=== PATIENT | male | born 1980 | race Caucasian/White ===

== ENCOUNTER 2018-08-16 00:42 | Inpatient (IN) | payer SELFPAY ==
[2018-08-16 01:28] LABS: #Lymphocytes 1.8 thou/uL (1.20-3.40); #Monocytes 0.5 thou/uL (0.11-0.59); #Neutrophils 8.1 thou/uL (1.40-6.50); %Basophils 0.4 % (0.0-1.0); %Eosinophils 0.4 % (0.0-10.0); %Lymphocytes 17.3 % (21.0-51.0); %Monocytes 5.1 % (0.0-10.0); %Neutrophils 76.8 % (42.0-75.0); Hemoglobin 15.3 g/dL (14.0-18.0); Mean Corpuscular HGB CONC 33.4 g/dL (32.0-36.0); Mean Corpuscular Hemoglobin 31.7 pg (27.0-31.0); Mean Corpuscular Volume 94.8 fL (78.0-98.0); Mean Platelet Volume 7.2 fL (7.4-10.4); Platelet Count 348 thou/uL (130-400); RBC Distribution Width 11.8 % (11.5-14.5); Red Blood Cell (RBC) Count 4.83 mill/uL (4.70-6.10); White Blood Cell (WBC) Count 10.5 thou/uL (4.8-10.8)
[2018-08-16 01:47] LABS: ALT (SGPT) 23 U/L (8-55); AST (SGOT) 12 U/L (5-34); Albumin 3.6 g/dL (3.5-5.0); Alkaline Phosphatase 114 U/L (40-150); Anion Gap 19 mmol/L (10-20); BUN (Urea Nitrogen) 15 mg/dL (8.9-20.6); Bilirubin, Total Less than 0.2 mg/dL (0.2-1.2); Calc. Creatinine Clearance 0 mL/min (70-130); Calcium 7.7 mg/dL (7.8-10.44); Carbon Dioxide 12 mmol/L (22-29); Chloride 104 mmol/L (98-107); Estimated GFR-MDRD 65; Globulin 2.9 g/dL (2.4-3.5); Glucose 244 mg/dL (70-105); Magnesium 1.8 mg/dL (1.6-2.6); Potassium 4.1 mmol/L (3.5-5.1); Protein, Total 6.5 g/dL (6.0-8.3); Sodium 131 mmol/L (136-145)
[2018-08-16 01:50] LABS: Phosphorus 1.7 mg/dL (2.3-4.7)
[2018-08-16] MEDS ORDERED: Ondansetron ODT 4 MG TAB SL PRN (02:51)
[2018-08-16] MEDS ORDERED: Ondansetron PF 4 MG/2 ML Vial IVP PRN ×2 (02:51→07:01)
[2018-08-16] MEDS ORDERED: D5 1/2 NS w/20 mEq KCL 1,000 ML IV PRN ×2 (02:52→03:06)
[2018-08-16] MEDS ORDERED: Dextrose 5 %-0.45 % NaCl 1,000 ML IV PRN ×2 (02:52→03:06)
[2018-08-16] MEDS ORDERED: Dextrose 50% Abboject 50 ML SYRINGE SLOW IVP PRN ×3 (02:52→10:12)
[2018-08-16] MEDS ORDERED: Sodium Chloride 0.9% 1,000 ML IV PRN ×8 (02:52→03:06)
[2018-08-16] MEDS ORDERED: Dextrose 5% in Water 1,000 ML IV PRN ×3 (02:52→10:12)
[2018-08-16] MEDS ORDERED: NS 0.9% w/ 20 MEQ KCL 1,000 ML/1,000 ML BAG IV PRN ×2 (02:52)
[2018-08-16] MEDS ORDERED: Potassium Chloride 20 MEQ TAB PO PRN ×2 (02:55→03:21)
[2018-08-16] MEDS ORDERED: Potassium Phosphate 15 MMOL in Sodium Chloride 0.9% 250 ML 250 ML IV PRN ×2 (02:55→03:21)
[2018-08-16] MEDS ORDERED: Potassium Chloride 40 MEQ in Sodium Chloride 0.9% 250 ML 250 ML IVPB PRN ×2 (02:55→03:21)
[2018-08-16] MEDS ORDERED: CCU ELECTROLYTE REPLACEMENT PROTOCOL FS PRN ×2 (02:55→03:21)
[2018-08-16] MEDS ORDERED: Magnesium 2 GM/NS 0.9% 100 ML 2 GM in Premix Bag 1 BAG IVPB PRN ×2 (02:55→03:21)
[2018-08-16] MEDS ORDERED: Magnesium Oxide 400 MG TAB PO PRN ×4 (02:55→03:21)
[2018-08-16] MEDS ORDERED: Potassium Phosphate 12 MMOL in Sodium Chloride 0.9% 250 ML 250 ML IV PRN ×2 (02:55→03:21)
[2018-08-16] MEDS ORDERED: Potassium Phosphate 9 MMOL in Sodium Chloride 0.9% 100 ML IVPB PRN ×2 (02:55→03:21)
[2018-08-16] MEDS ORDERED: Potassium Chloride 40 MEQ in Premix Bag 1 BAG IVPB PRN ×2 (02:55→03:21)
[2018-08-16] MEDS ORDERED: ADD ELECTROLYTE REPLACEMENT SET TO PROFILE FS SCH (03:00)
[2018-08-16] MEDS ORDERED: CCU Electrolyte Replacement 1 EACH IVPB SCH (03:06)
[2018-08-16] MEDS ORDERED: NS 0.9% w/ 20 MEQ KCL 1,000 ML IV PRN ×2 (03:06)
[2018-08-16 03:46] LABS: #Basophils 0.1 thou/uL (0.0-0.2); #Eosinphils 0.1 thou/uL (0.0-0.7); #Lymphocytes 2.6 thou/uL (1.20-3.40); #Monocytes 0.6 thou/uL (0.11-0.59); #Neutrophils 6.4 thou/uL (1.40-6.50); %Basophils 0.7 % (0.0-1.0); %Eosinophils 0.8 % (0.0-10.0); %Lymphocytes 26.7 % (21.0-51.0); %Neutrophils 65.7 % (42.0-75.0); Mean Corpuscular Hemoglobin 32.7 pg (27.0-31.0); Mean Corpuscular Volume 93.5 fL (78.0-98.0); Mean Platelet Volume 7.1 fL (7.4-10.4); Platelet Count 337 thou/uL (130-400); RBC Distribution Width 11.6 % (11.5-14.5); Red Blood Cell (RBC) Count 4.27 mill/uL (4.70-6.10); White Blood Cell (WBC) Count 9.8 thou/uL (4.8-10.8)
[2018-08-16] MEDS: Sodium Chloride 0.9% 1,000 ML IV SCH ×3 (03:46→17:46)
[2018-08-16 04:06] LABS: Anion Gap 13 mmol/L (10-20); BUN (Urea Nitrogen) 13 mg/dL (8.9-20.6); Calc. Creatinine Clearance 88 mL/min (70-130); Calcium 7.5 mg/dL (7.8-10.44); Carbon Dioxide 16 mmol/L (22-29); Chloride 107 mmol/L (98-107); Estimated GFR-MDRD 75; Glucose 167 mg/dL (70-105); Potassium 3.5 mmol/L (3.5-5.1); Sodium 132 mmol/L (136-145)
[2018-08-16 04:08] LABS: Anion Gap 12 mmol/L (10-20); BUN (Urea Nitrogen) 14 mg/dL (8.9-20.6); Calc. Creatinine Clearance 90 mL/min (70-130); Calcium 7.6 mg/dL (7.8-10.44); Carbon Dioxide 17 mmol/L (22-29); Chloride 107 mmol/L (98-107); Estimated GFR-MDRD 77; Glucose 168 mg/dL (70-105); Magnesium 1.4 mg/dL (1.6-2.6); Potassium 3.6 mmol/L (3.5-5.1); Sodium 132 mmol/L (136-145)
[2018-08-16 04:11] LABS: Phosphorus 1.4 mg/dL (2.3-4.7)
--- NOTE | 2018-08-16 06:02 | HP ---
CHIEF COMPLAINT: Nausea, vomiting, and diarrhea. HISTORY OF PRESENT ILLNESS: This is a 37-year-old male with past medical history of diabetes mellitus type 1, presented with chief complaint of nausea, vomiting, diarrhea, body aches, chills, abdominal pain for the past week. Per the patient, he has not seen a doctor since 1998 and patient has history of diabetes mellitus type 1. Patient states that he gets his insulin over the counter from [employer] and he self treat his diabetes. Patient states that he left his insulin in his car and he thinks that his insulin has gone bad due to the heat. Patient has not been feeling well, therefore has been admitted to be evaluated for DKA in the ED, the patient was found to have blood sugars of 400 systolic and the patient was given 10 units of insulin at Urgent care and patient was transferred to our ED at [place] for further treatment. Patient denies any fevers, headaches, dizziness, chest pain, palpitations, any current travel history. Patient also denies any positive sick contacts. REVIEW OF SYSTEMS: Positive for diarrhea, abdominal pain, nausea, vomiting otherwise as documented in the HPI. All other systems are reviewed and are negative. PAST MEDICAL HISTORY: Diabetes mellitus type 2. PAST SURGICAL HISTORY: Pelvic metal hardware placement, right lower extremity with fracture, status post roosevelt placement. PSYCHIATRIC HISTORY: No psych history. SOCIAL HISTORY: Patient lives with parents intermittently, currently homeless. Patient denies alcohol use, denies any illicit drug use. The patient states that he smokes occasionally. FAMILY HISTORY: Reviewed and noncontributory to this visit. ALLERGIES: No known drug allergies. CURRENT MEDICATIONS: Patient states that he takes Humalog over the counter. PHYSICAL EXAMINATION: VITAL SIGNS: Blood pressure 130/78, pulse of 87, respiratory rate of 18, temperature of 98.5, O2 saturation of 100 on room air. GENERAL: The patient is awake, alert, oriented x3, not in acute distress. Patient is lying comfortably in bed, able to speak without any apparent distress. HEENT: Normocephalic, atraumatic. Pupils are equally round and reactive to light. Extraocular movements are intact. No scleral icterus. No conjunctival pallor. Mucous membranes are dry. NECK: No JVD. Trachea is midline. Full range of motion, supple. LUNGS: Clear to auscultation bilaterally. No wheezing, no rales, no rhonchi appreciated. CARDIOVASCULAR: Positive S1, S2. Regular rate and rhythm. No murmurs, no gallops, no rubs appreciated. ABDOMEN: Soft, nontender, nondistended, no abdominal masses. No pulsatile masses. No peritoneal signs, no rigidity, no guarding, no rebound. EXTREMITIES: The patient has 5/5 upper extremity strength and 5/5 lower extremity strength. Good pulses of the upper and lower extremities bilaterally. PSYCHIATRIC: The patient is alert, oriented x3, normal affect. EMERGENCY DEPARTMENT COURSE: The patient received potassium chloride, normal saline, Novolin R 6 units per hour protocol started. LABORATORY DATA: WBC is 10.5, hemoglobin is 15.3, hematocrit is 45.8, RDW 7.8, platelet count is 348. Sodium is 131, potassium is 4.1, chloride is 104, carbon dioxide of 12, anion gap of 19, BUN is 15, creatinine is 1.25, glucose is 244, calcium is 7.7, phosphorus is 1.7, magnesium is 1.8. Total bilirubin is less than 0.2. AST is 12, ALT is 23, alkaline phosphatase 114. Toxicology, beta-hydroxybutyric acid is 6.47. ASSESSMENT AND PLAN: This is a 37-year-old male with past medical history significant for diabetes mellitus type 1, has been admitted for; 1. Diabetic ketoacidosis. At this time, patient has been started on the insulin protocol. We will continue IV fluids. We will monitor the patient's electrolytes in the a.m. We will continue and transition patient from insulin drip to IV subcu. Once the patient's blood glucose is below 120s, we will continue to follow the protocol. The patient is currently n.p.o. 2. History of diabetes mellitus type 1. Patient does not have health insurance. We will follow up with case management's recommendation. The patient will benefit from health insurance or samples of insulin. We will continue to manage the patient at this time. 3. Hypovolemic, hypertonic, hyponatremia. Patient's sodium is currently 131. The patient is to have a combination of dehydration and elevated glucose causing patient's hyponatremia. At this point, we will continue to monitor the patient's electrolytes and we will continue the patient on normal saline. 4. Hypophosphatemia. We will continue patient on current management. We will continue to monitor the patient's electrolytes in the a.m. 5. Deep venous thrombosis and gastrointestinal prophylaxis. MTDD
[2018-08-16] MEDS ORDERED: Eucerin (Mineral Oil/Petrolatum,White) 30 gm Jar TOP PRN (07:01)
[2018-08-16] MEDS ORDERED: HYDROcodone/Acetaminophen 5/325 mg Tablet PO PRN (07:01)
[2018-08-16] MEDS ORDERED: Ondansetron ODT 4 MG TAB PO PRN (07:01)
[2018-08-16] MEDS ORDERED: Senokot S 8.6-50 MG TAB PO PRN (07:01)
[2018-08-16] MEDS ORDERED: Bisacodyl 5 MG TAB PO PRN (07:01)
[2018-08-16] MEDS ORDERED: Loperamide HCl 2 MG CAP PO PRN (07:01)
[2018-08-16] MEDS ORDERED: Zolpidem Tartrate 5 MG TAB PO PRN (07:01)
[2018-08-16] MEDS ORDERED: hydrALAZINE 20 MG/ML VIAL SLOW IVP PRN (07:01)
[2018-08-16] MEDS ORDERED: Diabetic Tussin 200 MG/10 ML UDCUP PO PRN (07:01)
[2018-08-16] MEDS ORDERED: Acetaminophen 500 MG TAB PO PRN (07:01)
[2018-08-16] MEDS ORDERED: Cepastat Lozenges 1 LOZ PO PRN (07:01)
[2018-08-16] MEDS ORDERED: Sodium Chloride 0.65% Nasal 44 ML BOT EA NARE PRN (07:01)
[2018-08-16] MEDS ORDERED: Loratadine 10 MG TAB PO PRN (07:01)
[2018-08-16] MEDS ORDERED: Artificial Tears 18 DROP/0.9 ML EA EYE PRN (07:01)
[2018-08-16 07:46] LABS: Anion Gap 10 mmol/L (10-20); BUN (Urea Nitrogen) 11 mg/dL (8.9-20.6); Calc. Creatinine Clearance 98 mL/min (70-130); Calcium 7.1 mg/dL (7.8-10.44); Carbon Dioxide 16 mmol/L (22-29); Chloride 112 mmol/L (98-107); Estimated GFR-MDRD 85; Glucose 166 mg/dL (70-105); Potassium 3.8 mmol/L (3.5-5.1); Sodium 134 mmol/L (136-145)
[2018-08-16] MEDS: Famotidine 20 MG TAB PO SCH ×2 (08:38→20:49)
[2018-08-16] MEDS ORDERED: Famotidine/PF 20 mg/2ml Vial SLOW IVP SCH (09:00)
[2018-08-16] MEDS ORDERED: Insulin Regular 300 UNITS/3 ML VIAL SC PRN (10:12)
[2018-08-16] MEDS ORDERED: Insulin NPH/Reg Insulin Hm 300 UNITS/3 ML VIAL SC SCH (10:15)
--- NOTE | 2018-08-16 10:15 | PDOC.PN ---
- Subjective Encounter Start Date: 08/16/18 Encounter Start Time: 09:20 -: old records requested/rev Patient seen and examined. No new complaints. No overnight events feels better, tolerating diet, stable vitals - Objective Resuscitation Status: Resuscitation Status FULL:Full Resuscitation MAR Reviewed: Yes Vital Signs & Weight: Vital Signs (12 hours) Temp Pulse Resp BP Pulse Ox 08/16/18 07:06 98.5 F 85 16 128/77 99 08/16/18 04:32 98.6 F 89 17 112/69 100 08/16/18 02:37 98.3 F 95 18 142/89 H 100 Weight Weight 149 lb 4.047 oz I&O: 08/15/18 08/16/18 08/17/18 06:59 06:59 06:59 Intake Total 2250 1300 Output Total 1000 Balance 1250 1300 Result Diagrams: 08/16/18 03:27 08/16/18 07:14 Additional Labs: Accuchecks 08/16/18 08/16/18 08/16/18 09:08 07:32 06:15 POC Glucose 208 H 165 H 141 H 08/16/18 08/16/18 08/16/18 05:20 04:40 03:19 POC Glucose 102 127 H 163 H 08/16/18 08/16/18 02:14 00:59 POC Glucose 216 H 238 H EKG Reviewed by me: Yes (nsr) Phys Exam - Physical Examination Constitutional: NAD HEENT: PERRLA, moist MMs, sclera anicteric Neck: no JVD, supple Respiratory: no wheezing, no rales, no rhonchi Cardiovascular: RRR, no significant murmur, no rub Gastrointestinal: soft, non-tender, no distention, positive bowel sounds Musculoskeletal: no edema, pulses present Neurological: non-focal, normal sensation, moves all 4 limbs Lymphatic: no nodes Psychiatric: normal affect, A&O x 3 Skin: no rash, normal turgor Dx/Plan (1) DKA (diabetic ketoacidoses) Code(s): E13.10 - OTH DIABETES MELLITUS WITH KETOACIDOSIS WITHOUT COMA Status : Acute Qualifiers: Diabetes mellitus type: type 1 Comment: due to ran out insulin (2) Abnormal blood electrolyte level Code(s): E87.8 - OTH DISORDERS OF ELECTROLYTE AND FLUID BALANCE, NEC Status: Acute (3) Diabetes type 1, controlled Code(s): E10.9 - TYPE 1 DIABETES MELLITUS WITHOUT COMPLICATIONS Status: Chronic - Plan cont current plan of care * DKA resolved * will DC insulin drip * start NPH insulin 15 unit sc bid * monitor accucheck * continue IVF * transfer to medical * correct electrolytes as needed * ambulate * diet 1800 kcal ada . Review of Systems - Review of Systems Eyes: negative: Pain, Vision Change, Conjunctivae Inflammation, Eyelid Inflammation, Redness, Other ENT: negative: Ear Pain, Ear Discharge, Nose Pain, Nose Discharge, Nose Congestion, Mouth Pain, Mouth Swelling, Throat Pain, Throat Swelling, Other Respiratory: negative: Cough, Dry, Shortness of Breath, Hemoptysis, SOB with Excertion, Pleuritic Pain, Sputum, Wheezing Cardiovascular: negative: chest pain, palpitations, orthopnea, paroxysmal nocturnal dyspnea, edema, light headedness, other Gastrointestinal: negative: Nausea, Vomiting, Abdominal Pain, Diarrhea, Constipation, Melena, Hematochezia, Other Genitourinary: negative: Dysuria, Frequency, Incontinence, Hematuria, Retention , Other Musculoskeletal: negative: Neck Pain, Shoulder Pain, Arm Pain, Back Pain, Hand Pain, Leg Pain, Foot Pain, Other Skin: negative: Rash, Lesions, [place], Bruising, Other - Medications/Allergies Allergies/Adverse Reactions: Allergies Allergy/AdvReac Type Severity Reaction Status Date / Time No Known Allergies Allergy Verified 04/22/13 13:19 Medications: Current Medications Hydrocodone Bitart/Acetaminophen ([place] 5/325) 1 tab PO Q4H PRN PRN Reason: Moderate Pain (4-6) Artificial Tears (Tears Naturale) 2 drop EA EYE PRN PRN PRN Reason: Dry Eyes Bisacodyl (Dulcolax) 10 mg PO DAILYPRN PRN PRN Reason: Constipation Dextrose/Water (Dextrose 50%) 25 gm SLOW IVP PRN PRN PRN Reason: Hypoglycemia Famotidine (Pepcid) 20 mg PO BID [facility] Last Admin: 08/16/18 08:38 Dose: 20 mg Glucagon (Glucagon) 1 mg IM PRN PRN PRN Reason: Hypoglycemia Guaifenesin (Robitussin Sf) 200 mg PO Q4H PRN PRN Reason: Cough Hydralazine HCl (Apresoline) 10 mg SLOW IVP Q4H PRN PRN Reason: SBP > 180 and HR < 70 Sodium Chloride (Normal Saline 0.9%) 1,000 mls @ 125 mls/hr IV .Q8H [facility] Last Admin: 08/16/18 03:46 Dose: Not Given Dextrose/Water (D5w) 1,000 mls @ 0 mls/hr IV .Q0M PRN PRN Reason: Hypoglycemia Insulin Human Isoph/Insulin Regular (Humulin 70/30) 15 units SC BID-WM [facility] Insulin Human Isoph/Insulin Regular (Humulin 70/30) 15 units SC NOW [facility] Insulin Human Regular (Humulin R) 0 units SC .MODERATE SLIDING SC PRN PRN Reason: Moderate Correctional Scale Insulin Human Regular (Humulin R) 0 units SC .BEDTIME SLIDING SC PRN PRN Reason: Bedtime Correctional Scale Loperamide HCl (Imodium) 2 mg PO PRN PRN PRN Reason: Diarrhea/Loose Stools Loratadine (Claritin) 10 mg PO DAILYPRN PRN PRN Reason: Sinus Symptoms Mineral Oil/White Petrolatum (Eucerin Cream) 0 gm TOP BIDPRN PRN PRN Reason: Dry Skin Ondansetron HCl (Zofran Odt) 4 mg PO Q6H PRN PRN Reason: Nausea/Vomiting Ondansetron HCl (Zofran) 4 mg IVP Q6H PRN PRN Reason: Nausea/Vomiting Senna/Docusate Sodium (Senokot S) 2 tab PO BID PRN PRN Reason: Constipation Sodium Chloride (Flush - Normal Saline) 10 ml IVF PRN PRN PRN Reason: Saline Flush Sodium Chloride ([place] Nasal [place] 0.65%) 0 ml EA NARE QIDPRN PRN PRN Reason: Nasal Congestion Throat Lozenges (Cepastat Lozenges) 1 sharon PO Q2H PRN PRN Reason: Sore Throat Zolpidem Tartrate (Ambien) 5 mg PO HSPRN PRN PRN Reason: Insomnia
[2018-08-16 12:18] LABS: Anion Gap 8 mmol/L (10-20); BUN (Urea Nitrogen) 9 mg/dL (8.9-20.6); Calc. Creatinine Clearance 91 mL/min (70-130); Calcium 7.1 mg/dL (7.8-10.44); Carbon Dioxide 18 mmol/L (22-29); Chloride 109 mmol/L (98-107); Estimated GFR-MDRD 79; Glucose 234 mg/dL (70-105); Potassium 3.6 mmol/L (3.5-5.1); Sodium 131 mmol/L (136-145)
[2018-08-16] MEDS: Insulin NPH/Reg Insulin Hm 300 UNITS/3 ML VIAL SC SCH (17:45)
[2018-08-17 04:44] LABS: Anion Gap 9 mmol/L (10-20); BUN (Urea Nitrogen) 6 mg/dL (8.9-20.6); Calc. Creatinine Clearance 120 mL/min (70-130); Calcium 7.8 mg/dL (7.8-10.44); Carbon Dioxide 18 mmol/L (22-29); Chloride 110 mmol/L (98-107); Estimated GFR-MDRD Greater than 90; Glucose 107 mg/dL (70-105); Magnesium 1.7 mg/dL (1.6-2.6); Potassium 3.3 mmol/L (3.5-5.1); Sodium 134 mmol/L (136-145)
[2018-08-17 04:49] LABS: Phosphorus 1.3 mg/dL (2.3-4.7)
[2018-08-17] MEDS: Sodium Chloride 0.9% 1,000 ML IV SCH ×3 (05:33→17:32)
[2018-08-17] MEDS: Insulin Regular 300 UNITS/3 ML VIAL SC PRN ×2 (05:35→11:02)
[2018-08-17] MEDS ORDERED: Potassium Phosphate 30 MMOL in Sodium Chloride 0.9% 500 ML IVPB SCH (06:30)
[2018-08-17] MEDS: Insulin NPH/Reg Insulin Hm 300 UNITS/3 ML VIAL SC SCH ×2 (09:07→17:30)
[2018-08-17] MEDS: Famotidine 20 MG TAB PO SCH ×2 (09:09→20:28)
--- NOTE | 2018-08-17 10:21 | PDOC.PN ---
- Subjective Encounter Start Date: 08/17/18 Encounter Start Time: 09:20 Patient seen and examined. No new complaints. No overnight events - Objective Resuscitation Status: Resuscitation Status FULL:Full Resuscitation MAR Reviewed: Yes Vital Signs & Weight: Vital Signs (12 hours) Temp Pulse Resp BP Pulse Ox 08/17/18 07:36 98.4 F 76 16 149/90 H 99 08/17/18 06:16 151/90 H 08/17/18 04:00 98.1 F 74 20 156/100 H 99 08/17/18 00:00 98.2 F 84 18 132/86 99 Weight Admit Weight 149 lb 4.047 oz Weight 148 lb I&O: 08/16/18 08/17/18 08/18/18 06:59 06:59 06:59 Intake Total 2250 4970 Output Total 1000 2960 Balance 1250 2009 Result Diagrams: 08/16/18 03:27 08/17/18 03:45 Additional Labs: Accuchecks 08/17/18 08/17/18 08/16/18 05:30 01:53 19:47 POC Glucose 172 H 182 H 153 H 08/16/18 08/16/18 08/16/18 16:28 10:42 10:13 POC Glucose 105 230 H 227 H Phys Exam - Physical Examination Constitutional: NAD HEENT: PERRLA, moist MMs, sclera anicteric Neck: no JVD, supple Respiratory: no wheezing, no rales, no rhonchi Cardiovascular: RRR, no significant murmur, no rub Gastrointestinal: soft, non-tender, no distention, positive bowel sounds Musculoskeletal: no edema, pulses present Neurological: non-focal, normal sensation, moves all 4 limbs Psychiatric: normal affect, A&O x 3 Skin: no rash, normal turgor Dx/Plan (1) DKA (diabetic ketoacidoses) Code(s): E13.10 - OTH DIABETES MELLITUS WITH KETOACIDOSIS WITHOUT COMA Status : Acute Qualifiers: Diabetes mellitus type: type 1 Comment: due to ran out insulin (2) Abnormal blood electrolyte level Code(s): E87.8 - OTH DISORDERS OF ELECTROLYTE AND FLUID BALANCE, NEC Status: Acute (3) Diabetes type 1, controlled Code(s): E10.9 - TYPE 1 DIABETES MELLITUS WITHOUT COMPLICATIONS Status: Chronic - Plan cont current plan of care * replace potassium phosphate * will consider discharge tomorrow * consult dietary for diabetic education * medication reviewed as below * symptomatic treatment. Review of Systems - Review of Systems ENT: negative: Ear Pain, Ear Discharge, Nose Pain, Nose Discharge, Nose Congestion, Mouth Pain, Mouth Swelling, Throat Pain, Throat Swelling, Other Respiratory: negative: Cough, Dry, Shortness of Breath, Hemoptysis, SOB with Excertion, Pleuritic Pain, Sputum, Wheezing Cardiovascular: negative: chest pain, palpitations, orthopnea, paroxysmal nocturnal dyspnea, edema, light headedness, other Gastrointestinal: negative: Nausea, Vomiting, Abdominal Pain, Diarrhea, Constipation, Melena, Hematochezia, Other Genitourinary: negative: Dysuria, Frequency, Incontinence, Hematuria, Retention , Other Musculoskeletal: negative: Neck Pain, Shoulder Pain, Arm Pain, Back Pain, Hand Pain, Leg Pain, Foot Pain, Other Skin: negative: Rash, Lesions, [place], Bruising, Other - Medications/Allergies Allergies/Adverse Reactions: Allergies Allergy/AdvReac Type Severity Reaction Status Date / Time No Known Allergies Allergy Verified 04/22/13 13:19 Medications: Current Medications Hydrocodone Bitart/Acetaminophen ([place] 5/325) 1 tab PO Q4H PRN PRN Reason: Moderate Pain (4-6) Artificial Tears (Tears Naturale) 2 drop EA EYE PRN PRN PRN Reason: Dry Eyes Bisacodyl (Dulcolax) 10 mg PO DAILYPRN PRN PRN Reason: Constipation Dextrose/Water (Dextrose 50%) 25 gm SLOW IVP PRN PRN PRN Reason: Hypoglycemia Famotidine (Pepcid) 20 mg PO BID [facility] Last Admin: 08/17/18 09:09 Dose: 20 mg Glucagon (Glucagon) 1 mg IM PRN PRN PRN Reason: Hypoglycemia Guaifenesin (Robitussin Sf) 200 mg PO Q4H PRN PRN Reason: Cough Hydralazine HCl (Apresoline) 10 mg SLOW IVP Q4H PRN PRN Reason: SBP > 180 and HR < 70 Sodium Chloride (Normal Saline 0.9%) 1,000 mls @ 125 mls/hr IV .Q8H [facility] Last Admin: 08/17/18 09:09 Dose: 1,000 mls Dextrose/Water (D5w) 1,000 mls @ 0 mls/hr IV .Q0M PRN PRN Reason: Hypoglycemia Potassium Phosphate 30 mmol/ (Sodium Chloride) 510 mls @ 85 mls/hr IVPB NOW [facility] Stop: 08/17/18 12:29 Last Admin: 08/17/18 06:13 Dose: 510 mls Insulin Human Isoph/Insulin Regular (Humulin 70/30) 15 units SC BID-[facility] Last Admin: 08/17/18 09:07 Dose: 15 unit Insulin Human Regular (Humulin R) 0 units SC .MODERATE SLIDING SC PRN PRN Reason: Moderate Correctional Scale Last Admin: 08/17/18 05:35 Dose: 2 unit Insulin Human Regular (Humulin R) 0 units SC .BEDTIME SLIDING SC PRN PRN Reason: Bedtime Correctional Scale Loperamide HCl (Imodium) 2 mg PO PRN PRN PRN Reason: Diarrhea/Loose Stools Loratadine (Claritin) 10 mg PO DAILYPRN PRN PRN Reason: Sinus Symptoms Mineral Oil/White Petrolatum (Eucerin Cream) 0 gm TOP BIDPRN PRN PRN Reason: Dry Skin Ondansetron HCl (Zofran Odt) 4 mg PO Q6H PRN PRN Reason: Nausea/Vomiting Ondansetron HCl (Zofran) 4 mg IVP Q6H PRN PRN Reason: Nausea/Vomiting Senna/Docusate Sodium (Senokot S) 2 tab PO BID PRN PRN Reason: Constipation Sodium Chloride (Flush - Normal Saline) 10 ml IVF PRN PRN PRN Reason: Saline Flush Sodium Chloride ([place] Nasal [place] 0.65%) 0 ml EA NARE QIDPRN PRN PRN Reason: Nasal Congestion Throat Lozenges (Cepastat Lozenges) 1 sharon PO Q2H PRN PRN Reason: Sore Throat Zolpidem Tartrate (Ambien) 5 mg PO HSPRN PRN PRN Reason: Insomnia
[2018-08-18] MEDS: Sodium Chloride 0.9% 1,000 ML IV SCH ×2 (04:08→12:20)
[2018-08-18 05:19] LABS: Anion Gap 14 mmol/L (10-20); BUN (Urea Nitrogen) 11 mg/dL (8.9-20.6); Calc. Creatinine Clearance 114 mL/min (70-130); Calcium 8.1 mg/dL (7.8-10.44); Carbon Dioxide 24 mmol/L (22-29); Chloride 100 mmol/L (98-107); Estimated GFR-MDRD Greater than 90; Glucose 402 mg/dL (70-105); Phosphorus 2.2 mg/dL (2.3-4.7); Potassium 3.4 mmol/L (3.5-5.1); Sodium 135 mmol/L (136-145)
[2018-08-18] MEDS: Insulin Regular 300 UNITS/3 ML VIAL SC PRN (06:05)
[2018-08-18] MEDS: Famotidine 20 MG TAB PO SCH ×2 (08:19→10:43)
[2018-08-18] MEDS: Insulin NPH/Reg Insulin Hm 300 UNITS/3 ML VIAL SC SCH (08:20)
--- NOTE | 2018-08-18 10:21 | PDOC.PN ---
- Subjective Encounter Start Date: 08/18/18 Encounter Start Time: 09:30 Patient seen and examined. No new complaints. No overnight events - Objective Resuscitation Status: Resuscitation Status FULL:Full Resuscitation MAR Reviewed: Yes Vital Signs & Weight: Vital Signs (12 hours) Temp Pulse Resp BP Pulse Ox 08/18/18 07:27 98.2 F 153/89 H 08/18/18 04:00 97.5 F L 81 18 157/95 H 97 08/18/18 00:00 98.2 F 82 17 159/89 H 97 Weight Admit Weight 149 lb 4.047 oz Weight 149 lb 3.2 oz I&O: 08/17/18 08/18/18 08/19/18 06:59 06:59 06:59 Intake Total 4970 4900 Output Total 2960 3550 600 Balance 2009 1350 -600 Result Diagrams: 08/16/18 03:27 08/18/18 03:50 Additional Labs: Accuchecks 08/18/18 08/17/18 08/17/18 06:01 20:02 17:27 POC Glucose 348 H 305 H 217 H 08/17/18 08/17/18 16:30 10:35 POC Glucose 64 L 296 H Phys Exam - Physical Examination Constitutional: NAD HEENT: PERRLA, moist MMs, sclera anicteric Neck: no JVD, supple Respiratory: no wheezing, no rales, no rhonchi Cardiovascular: RRR, no significant murmur, no rub Gastrointestinal: soft, non-tender, no distention, positive bowel sounds Musculoskeletal: no edema, pulses present Neurological: non-focal, normal sensation, moves all 4 limbs Psychiatric: normal affect, A&O x 3 Skin: no rash, normal turgor Dx/Plan (1) DKA (diabetic ketoacidoses) Code(s): E13.10 - OTH DIABETES MELLITUS WITH KETOACIDOSIS WITHOUT COMA Status : Acute Qualifiers: Diabetes mellitus type: type 1 Comment: due to ran out insulin (2) Abnormal blood electrolyte level Code(s): E87.8 - OTH DISORDERS OF ELECTROLYTE AND FLUID BALANCE, NEC Status: Acute (3) Diabetes type 1, controlled Code(s): E10.9 - TYPE 1 DIABETES MELLITUS WITHOUT COMPLICATIONS Status: Chronic - Plan cont current plan of care, rn social services * medication reviewed as below * symptomatic treatment * will need social work for medication assistance * will dc today. Review of Systems - Review of Systems ENT: negative: Ear Pain, Ear Discharge, Nose Pain, Nose Discharge, Nose Congestion, Mouth Pain, Mouth Swelling, Throat Pain, Throat Swelling, Other Respiratory: negative: Cough, Dry, Shortness of Breath, Hemoptysis, SOB with Excertion, Pleuritic Pain, Sputum, Wheezing Cardiovascular: negative: chest pain, palpitations, orthopnea, paroxysmal nocturnal dyspnea, edema, light headedness, other Gastrointestinal: negative: Nausea, Vomiting, Abdominal Pain, Diarrhea, Constipation, Melena, Hematochezia, Other Genitourinary: negative: Dysuria, Frequency, Incontinence, Hematuria, Retention , Other Musculoskeletal: negative: Neck Pain, Shoulder Pain, Arm Pain, Back Pain, Hand Pain, Leg Pain, Foot Pain, Other - Medications/Allergies Allergies/Adverse Reactions: Allergies Allergy/AdvReac Type Severity Reaction Status Date / Time No Known Allergies Allergy Verified 04/22/13 13:19 Medications: Current Medications Hydrocodone Bitart/Acetaminophen ([place] 5/325) 1 tab PO Q4H PRN PRN Reason: Moderate Pain (4-6) Artificial Tears (Tears Naturale) 2 drop EA EYE PRN PRN PRN Reason: Dry Eyes Bisacodyl (Dulcolax) 10 mg PO DAILYPRN PRN PRN Reason: Constipation Dextrose/Water (Dextrose 50%) 25 gm SLOW IVP PRN PRN PRN Reason: Hypoglycemia Famotidine (Pepcid) 20 mg PO BID [facility] Last Admin: 08/18/18 08:19 Dose: 20 mg Glucagon (Glucagon) 1 mg IM PRN PRN PRN Reason: Hypoglycemia Guaifenesin (Robitussin Sf) 200 mg PO Q4H PRN PRN Reason: Cough Hydralazine HCl (Apresoline) 10 mg SLOW IVP Q4H PRN PRN Reason: SBP > 180 and HR < 70 Sodium Chloride (Normal Saline 0.9%) 1,000 mls @ 125 mls/hr IV .Q8H [facility] Last Admin: 08/18/18 04:08 Dose: 1,000 mls Dextrose/Water (D5w) 1,000 mls @ 0 mls/hr IV .Q0M PRN PRN Reason: Hypoglycemia Insulin Human Isoph/Insulin Regular (Humulin 70/30) 15 units SC BID-[facility] Last Admin: 08/18/18 08:20 Dose: 15 unit Insulin Human Regular (Humulin R) 0 units SC .MODERATE SLIDING SC PRN PRN Reason: Moderate Correctional Scale Last Admin: 08/18/18 06:05 Dose: 8 unit Insulin Human Regular (Humulin R) 0 units SC .BEDTIME SLIDING SC PRN PRN Reason: Bedtime Correctional Scale Last Admin: 08/17/18 20:28 Dose: 4 unit Loperamide HCl (Imodium) 2 mg PO PRN PRN PRN Reason: Diarrhea/Loose Stools Loratadine (Claritin) 10 mg PO DAILYPRN PRN PRN Reason: Sinus Symptoms Mineral Oil/White Petrolatum (Eucerin Cream) 0 gm TOP BIDPRN PRN PRN Reason: Dry Skin Ondansetron HCl (Zofran Odt) 4 mg PO Q6H PRN PRN Reason: Nausea/Vomiting Ondansetron HCl (Zofran) 4 mg IVP Q6H PRN PRN Reason: Nausea/Vomiting Senna/Docusate Sodium (Senokot S) 2 tab PO BID PRN PRN Reason: Constipation Sodium Chloride (Flush - Normal Saline) 10 ml IVF PRN PRN PRN Reason: Saline Flush Sodium Chloride ([place] Nasal [place] 0.65%) 0 ml EA NARE QIDPRN PRN PRN Reason: Nasal Congestion Throat Lozenges (Cepastat Lozenges) 1 sharon PO Q2H PRN PRN Reason: Sore Throat Zolpidem Tartrate (Ambien) 5 mg PO HSPRN PRN PRN Reason: Insomnia
--- NOTE | 2018-08-18 11:15 | DIS ---
PRIMARY CARE PHYSICIAN: Dr. Gonzalo Menezes DATE OF ADMISSION: 08/16/2018 DATE OF DISCHARGE: 08/18/2018 DISCHARGE DISPOSITION: Home. PRIMARY DISCHARGE DIAGNOSES: 1. Diabetic ketoacidosis, resolved. 2. Abnormal blood electrolytes corrected. SECONDARY DISCHARGE DIAGNOSES: Diabetes type 1, noncompliance with treatment. PRIMARY PROCEDURE/OPERATION: None. RADIOLOGICAL INVESTIGATION: None. SIGNIFICANT LABORATORY DATA: WBC 9.8, hemoglobin 14.0, platelets 337. Sodium 135, potassium 3.4, BU N 11, creatinine 0.84, glucose of 402, calcium 8.1, phosphorus 2.1. DISCHARGE MEDICATIONS: Novolin 70/30, 25 units subcu b.i.d. and Novolin regular subcu t.i.d. as per sliding scale. CONTRAINDICATIONS: None. CODE STATUS: FULL CODE. INPATIENT CONSULTANTS: None. ALLERGIES: No known drug allergy. DISCHARGE PLAN: Post hospital, the patient will follow up with primary care physician as instructed. HOSPITAL COURSE: A 37-year-old male who was admitted by Dr. Hanson on 08/16/2018. Please see his H&P for further detail. This patient has diabetes type 1. He was not buying his insulin. He was not t aking his insulin and that is why he had acute diabetic ketoacidosis. He also had nausea, vomiting, diarrhea prior to arrival to the hospital. The patient was clinically dehydrated as well as he was e xperiencing DKA. He was treated in IMCU with DKA protocol treatment. With DKA protocol treatment hi s ketones completely improved and his DKA resolved. He had abnormal electrolytes that was replaced. This patient cannot afford medication and that is why we provided social work help to assist with me dication. The patient is seen and examined at bedside today. This patient has continued to be high risk for re current admission because of his nonfunding for medication and noncompliance with medication. Please see my progress note from today for further details.
[2018-08-18 11:42] VITALS: BP 151/91; TEMP 97.7
[2018-08-18] MEDS: Potassium Phosphate 30 MMOL in Sodium Chloride 0.9% 500 ML IVPB SCH ×2 (12:17→15:08)
[2018-08-18 13:49] VITALS: BMI 20.7
== END 2018-08-18 15:05 | disposition home or self-care (01) | DRG 639 ==
LOC: ERS 00:42 → IMCU/EMU 02:39
PROVIDERS: ADMIT Internal Medicine; ATTEND Internal Medicine
DX: E10.10 Type 1 diabetes mellitus with ketoacidosis without coma (principal); Z91.14 Patient's other noncompliance with medication regimen
CPT/HCPCS: 36415; 36416; 80048; 80053; 82010; 83036; 83735; 83930; 84100; 85025; 96365; J1815; J7050

== ENCOUNTER 2018-08-26 07:48 | Inpatient (IN) | payer SELFPAY ==
[2018-08-26 08:14] LABS: Base Excess-Venous -17.3 mmol/L (0 (+/- 2.5)); Bicarbonate (HCO3v) 10.1 mmol/L (1.0-85.0); CO2 Tension (PvCO2) 29.3 mmHg (41.0-51.0); Calcium, Ionized 1.09 mmol/L (1.12-1.32); Hemoglobin - Calc 17.6 g/dL (12.0-18.0); O2 Tension (PvO2) 44.2 mmHg (35.0-45.0); Potassium 4.9 mmol/L (3.4-4.7); pH (Venous) 7.146 (7.35-7.45); vO2 Saturation-calc 67.2 % (94-98)
[2018-08-26] MEDS ORDERED: Pantoprazole 40 MG VIAL ONE (08:14)
[2018-08-26 08:17] LABS: #Basophils 0.1 thou/uL (0.0-0.2); #Eosinphils 0.1 thou/uL (0.0-0.7); #Lymphocytes 2.4 thou/uL (1.20-3.40); #Monocytes 1.4 thou/uL (0.11-0.59); %Basophils 0.8 % (0.0-1.0); %Eosinophils 0.6 % (0.0-10.0); %Lymphocytes 18.5 % (21.0-51.0); %Monocytes 10.4 % (0.0-10.0); %Neutrophils 69.6 % (42.0-75.0); Hemoglobin 14.6 g/dL (14.0-18.0); Mean Corpuscular HGB CONC 30.9 g/dL (32.0-36.0); Mean Corpuscular Hemoglobin 32.1 pg (27.0-31.0); Mean Platelet Volume 7.3 fL (7.4-10.4); Platelet Count 523 thou/uL (130-400); RBC Distribution Width 12.1 % (11.5-14.5); Red Blood Cell (RBC) Count 4.55 mill/uL (4.70-6.10)
[2018-08-26 08:33] LABS: ALT (SGPT) 185 U/L (8-55); AST (SGOT) 38 U/L (5-34); Albumin 4.8 g/dL (3.5-5.0); Alkaline Phosphatase 218 U/L (40-150); BUN (Urea Nitrogen) 29 mg/dL (8.9-20.6); Bilirubin, Total 0.4 mg/dL (0.2-1.2); Calc. Creatinine Clearance 0 mL/min (70-130); Calcium 10.1 mg/dL (7.8-10.44); Chloride 89 mmol/L (98-107); Estimated GFR-MDRD 42; Potassium 5.2 mmol/L (3.5-5.1); Protein, Total 8.8 g/dL (6.0-8.3); Sodium 128 mmol/L (136-145)
[2018-08-26 08:38] LABS: Carbon Dioxide Less than 8 mmol/L (22-29); Glucose 688 mg/dL (70-105)
[2018-08-26] MEDS ORDERED: Ondansetron PF 4 MG/2 ML Vial ONE (08:48)
[2018-08-26] MEDS ORDERED: Lorazepam 2 MG/ML VIAL ONE (08:51)
[2018-08-26] MEDS ORDERED: Insulin Regular 100 units/100 ml in NS IVPB SCH (09:00)
[2018-08-26] MEDS ORDERED: Insulin Regular 300 UNITS/3 ML VIAL ONE (09:06)
[2018-08-26] MEDS ORDERED: Dextrose 5 %-0.45 % NaCl 1,000 ML IV PRN (09:57)
[2018-08-26] MEDS ORDERED: NS 0.9% w/ 20 MEQ KCL 1,000 ML/1,000 ML BAG IV PRN ×2 (09:57)
[2018-08-26] MEDS ORDERED: Sodium Chloride 0.9% 1,000 ML IV PRN ×4 (09:57)
[2018-08-26] MEDS ORDERED: Dextrose 5% in Water 1,000 ML IV PRN (09:57)
[2018-08-26] MEDS ORDERED: ADD ELECTROLYTE REPLACEMENT SET TO PROFILE FS SCH (10:00)
[2018-08-26] MEDS ORDERED: Insulin Regular 300 UNITS/3 ML VIAL IVP SCH (10:00)
[2018-08-26] MEDS ORDERED: Dextrose 50% Abboject 50 ML SYRINGE SLOW IVP PRN (10:03)
[2018-08-26] MEDS ORDERED: Ondansetron ODT 4 MG TAB SL PRN (10:04)
[2018-08-26] MEDS ORDERED: Acetaminophen 325 MG TAB PO PRN (10:04)
[2018-08-26] MEDS ORDERED: Ondansetron PF 4 MG/2 ML Vial IVP PRN (10:04)
[2018-08-26 10:32] VITALS: BMI 22.6
[2018-08-26 12:55] LABS: Anion Gap 26 mmol/L (10-20); BUN (Urea Nitrogen) 27 mg/dL (8.9-20.6); Calc. Creatinine Clearance 80 mL/min (70-130); Calcium 8.2 mg/dL (7.8-10.44); Carbon Dioxide 8 mmol/L (22-29); Chloride 106 mmol/L (98-107); Estimated GFR-MDRD 64; Glucose 297 mg/dL (70-105); Potassium 4.8 mmol/L (3.5-5.1); Sodium 135 mmol/L (136-145)
[2018-08-26] MEDS: D5 1/2 NS w/20 mEq KCL 1,000 ML IV PRN ×2 (13:01→17:10)
--- NOTE | 2018-08-26 13:37 | HP ---
CHIEF COMPLAINT: Vomiting. HISTORY OF PRESENT ILLNESS: This patient is a 38-year-old male who was just released from this [facility] about 8 days prior to being seen on this occasion. At that time, the patient had been admitted w ith diabetic ketoacidosis. The patient had reported that he had been managing his own insulin and jarquin d not actually seen a doctor since 1998. He was discharged with prescriptions for his insulin. He p resented back on this occasion reporting nausea and vomiting. He reported that he had not taken his insulin this morning. He reported some associated epigastric discomfort. In the emergency departmen t, the patient became a bit agitated and subsequently required some benzodiazepine and is currently a rousable, but somnolent enough that he is not able to give me much additional history. REVIEW OF SYSTEMS: His review of systems in the emergency department was only notable for the nausea , vomiting and epigastric discomfort. PAST MEDICAL HISTORY: Per his previous records, the patient has type 1 diabetes, starting at age ons et of 19. Again, recently admitted here for the diabetic ketoacidosis. PAST SURGICAL HISTORY: Apparently had some sort of trauma resulting in hardware placement in the pel vis and right lower extremity. SOCIAL HISTORY: The patient denies drugs, alcohol, or smoking, intermittently homeless. Alternating with living with his parents at times. ALLERGIES: None. MEDICATIONS: Based on his discharge from 08/18/2018 include insulin, Novolin 70/30 25 units b.i.d. a nd sliding scale NovoLog with meals. PHYSICAL EXAMINATION: VITAL SIGNS: Temperature 96.3, pulse 105, respirations 16, O2 sat 99% on room air, BP 119/84. GENERAL APPEARANCE: The patient again is somnolent. He does awaken, speak briefly and is back to [facility]. He is in no distress. HEENT: His pupils are a bit constricted and sluggish, but reactive. No OP lesions. CARDIOVASCULAR: Tachycardic without murmurs, gallops or rubs. LUNGS: Clear to auscultation bilaterally with good chest wall expansion and air exchange. ABDOMEN: Soft, nondistended, positive bowel sounds. No masses, no organomegaly. There does not kelton ear to be any tenderness to palpation. EXTREMITIES: Warm and dry. No cyanosis, clubbing, or edema. LABORATORY DATA: White count 13.0, hemoglobin 14.6, MCV 104, platelets 523. Sodium 128, potassium 5 .2, chloride 89, CO2 less than 8, BUN 29, creatinine 1.182, glucose initially greater than 550 on fin gerstick, lab draw 688, calcium 10.1, total bilirubin 0.4, AST 838, ALT 185, alkaline phosphatase 218 , total protein 8.8, albumin 4.8. Beta hydroxybutyrate 13.44. ASSESSMENT AND PLAN: 1. Diabetic ketoacidosis. The patient is placed in the IMCU. He has been given 2 liters of fluid b olus in the emergency department as well as an initial dose of insulin and is currently on an insulin drip. He has the diabetic ketoacidosis protocol order set ordered. We will continue to follow that protocol for now. We will obtain serial BMPs in order to monitor his anion gap and ensure that we a re making adequate progress. We will continue with frequent Accu-Cheks. 2. The patient does not have evidence of infection. 3. The patient had some mild agitation in the emergency department, likely due to altered mental sta tus from acidosis. We will check a urine drug screen. 4. Elevated liver enzymes likely related to the acidosis as well. His liver enzymes were not elevat ed with his previous admission for diabetic ketoacidosis. We will check ultrasound of the right uppe r quadrant to ensure there is no infection issues there that could be contributing to the diabetic ke toacidosis. 5. Mild acute renal insufficiency. The patient's creatinine was 0.84 at the time of his discharge o n 08/18/2018, it is now elevated at 1.82. Should improve with some hydration. We will continue to m onitor. 6. Pseudohyponatremia secondary to the severe hyperglycemia.
[2018-08-26 16:12] LABS: Anion Gap 16 mmol/L (10-20); BUN (Urea Nitrogen) 21 mg/dL (8.9-20.6); Calc. Creatinine Clearance 95 mL/min (70-130); Calcium 7.6 mg/dL (7.8-10.44); Carbon Dioxide 13 mmol/L (22-29); Chloride 113 mmol/L (98-107); Estimated GFR-MDRD 77; Glucose 220 mg/dL (70-105); Potassium 4.5 mmol/L (3.5-5.1); Sodium 137 mmol/L (136-145)
[2018-08-27] MEDS: D5 1/2 NS w/20 mEq KCL 1,000 ML IV PRN ×2 (00:28→05:09)
[2018-08-27 00:52] LABS: Anion Gap 8 mmol/L (10-20); BUN (Urea Nitrogen) 16 mg/dL (8.9-20.6); Calc. Creatinine Clearance 101 mL/min (70-130); Carbon Dioxide 22 mmol/L (22-29); Chloride 110 mmol/L (98-107); Estimated GFR-MDRD 84; Glucose 140 mg/dL (70-105); Potassium 3.8 mmol/L (3.5-5.1); Sodium 136 mmol/L (136-145)
[2018-08-27 06:20] LABS: Anion Gap 10 mmol/L (10-20); BUN (Urea Nitrogen) 12 mg/dL (8.9-20.6); Calc. Creatinine Clearance 115 mL/min (70-130); Carbon Dioxide 20 mmol/L (22-29); Chloride 109 mmol/L (98-107); Estimated GFR-MDRD Greater than 90; Glucose 176 mg/dL (70-105); Potassium 3.5 mmol/L (3.5-5.1); Sodium 135 mmol/L (136-145)
[2018-08-27] MEDS: Enoxaparin Sodium 40 MG/0.4 ML SYRINGE SC SCH (08:12)
[2018-08-27] MEDS ORDERED: Dextrose 5% in Water 1,000 ML IV PRN (08:30)
[2018-08-27] MEDS: Insulin NPH/Reg Insulin Hm 300 UNITS/3 ML VIAL SC SCH ×2 (09:27→19:57)
--- NOTE | 2018-08-27 14:41 | PDOC.PN ---
- Subjective Encounter Start Date: 08/27/18 Encounter Start Time: 08:30 Doing better. Upper abdominal pain is improved. Still mild. - Objective Resuscitation Status: Resuscitation Status FULL:Full Resuscitation Vital Signs & Weight: Vital Signs (12 hours) Temp Pulse Resp BP Pulse Ox 08/27/18 11:30 98 F 94 18 136/75 99 08/27/18 10:40 97 08/27/18 07:39 97.8 F 97 14 139/86 94 L 08/27/18 07:29 95 08/27/18 04:00 98.6 F 98 17 122/81 95 Weight Weight 159 lb I&O: 08/26/18 08/27/18 08/28/18 06:59 06:59 06:59 Intake Total 6925.1 1700.3 Output Total 2600 550 Balance 4325.1 1150.3 Result Diagrams: 08/26/18 08:00 08/27/18 05:56 Additional Labs: Accuchecks 08/27/18 08/27/18 08/27/18 11:54 09:27 08:07 POC Glucose 81 191 H 267 H 08/27/18 08/27/18 08/27/18 07:01 06:14 05:12 POC Glucose 175 H 188 H 150 H 08/27/18 08/27/18 08/27/18 04:13 03:04 02:08 POC Glucose 166 H 235 H 166 H 08/27/18 08/27/18 08/26/18 01:13 00:22 23:07 POC Glucose 165 H 126 H 167 H 08/26/18 08/26/18 08/26/18 22:17 21:15 20:04 POC Glucose 234 H 264 H 232 H 08/26/18 08/26/18 08/26/18 19:08 17:56 16:58 POC Glucose 222 H 234 H 189 H 08/26/18 08/26/18 16:05 14:56 POC Glucose 201 H 204 H Phys Exam - Physical Examination Constitutional: NAD Respiratory: no wheezing, no rales, no rhonchi, clear to auscultation bilateral Cardiovascular: RRR, no significant murmur, no rub Gastrointestinal: soft, non-tender, no distention, positive bowel sounds Musculoskeletal: no edema Neurological: non-focal Psychiatric: normal affect, A&O x 3 Dx/Plan (1) DKA (diabetic ketoacidoses) Code(s): E13.10 - OTH DIABETES MELLITUS WITH KETOACIDOSIS WITHOUT COMA Status : Acute Comment: due to ran out insulin (2) Diabetes type I Status: Acute (3) Abnormal blood electrolyte level Code(s): E87.8 - OTH DISORDERS OF ELECTROLYTE AND FLUID BALANCE, NEC Status: Acute (4) Epigastric abdominal pain Code(s): R10.13 - EPIGASTRIC PAIN Status: Acute - Plan * The anion gap is normalized. He is awake and capable of eating and drinking. Stop the insulin gtt and start the long-acting insulin. Maintain SSI with q 4 accuchecks. Continue Pepcid. Check amylase and lipase.
[2018-08-27 15:38] LABS: Anion Gap 11 mmol/L (10-20); BUN (Urea Nitrogen) 7 mg/dL (8.9-20.6); Calc. Creatinine Clearance 116 mL/min (70-130); Calcium 8.2 mg/dL (7.8-10.44); Carbon Dioxide 23 mmol/L (22-29); Chloride 106 mmol/L (98-107); Estimated GFR-MDRD Greater than 90; Glucose 134 mg/dL (70-105); Potassium 3.9 mmol/L (3.5-5.1); Sodium 136 mmol/L (136-145)
[2018-08-27] MEDS ORDERED: guaiFENesin 200 MG TAB PO PRN (17:23)
[2018-08-27] MEDS ORDERED: Pseudoephedrine HCl 30 MG TAB PO PRN (17:24)
[2018-08-27] MEDS: Oxymetazoline HCl 0.05% ( 15 ML ) NASAL PRN (17:57)
[2018-08-27] MEDS: HumaLOG 300 UNITS/3 ML VIAL SC PRN (19:59)
[2018-08-28 05:39] LABS: Anion Gap 11 mmol/L (10-20); BUN (Urea Nitrogen) 12 mg/dL (8.9-20.6); Calc. Creatinine Clearance 140 mL/min (70-130); Calcium 8.5 mg/dL (7.8-10.44); Carbon Dioxide 27 mmol/L (22-29); Chloride 105 mmol/L (98-107); Estimated GFR-MDRD Greater than 90; Glucose 129 mg/dL (70-105); Potassium 3.6 mmol/L (3.5-5.1); Sodium 139 mmol/L (136-145)
[2018-08-28] MEDS: Enoxaparin Sodium 40 MG/0.4 ML SYRINGE SC SCH (09:26)
[2018-08-28] MEDS: Insulin NPH/Reg Insulin Hm 300 UNITS/3 ML VIAL SC SCH ×2 (09:41→20:11)
[2018-08-28] MEDS: Loratadine 10 MG TAB PO SCH (09:41)
[2018-08-28] MEDS: HumaLOG 300 UNITS/3 ML VIAL SC PRN ×2 (12:56→20:12)
--- NOTE | 2018-08-28 13:15 | PDOC.PN ---
- Subjective Encounter Start Date: 08/28/18 Encounter Start Time: 10:20 Says he feels terrible. Complains of "cold symptoms" with nasal congestion. - Objective Resuscitation Status: Resuscitation Status FULL:Full Resuscitation Vital Signs & Weight: Vital Signs (12 hours) Temp Pulse Resp BP BP Pulse Ox 08/28/18 13:09 88 98 08/28/18 08:00 97.9 F 81 18 158/80 H 98 08/28/18 07:35 98 08/28/18 05:28 98.4 F 89 18 158/89 H 96 Weight Weight 159 lb I&O: 08/27/18 08/28/18 08/29/18 06:59 06:59 06:59 Intake Total 6925.1 3720.3 Output Total 2600 550 Balance 4325.1 3170.3 Result Diagrams: 08/26/18 08:00 08/28/18 05:14 Additional Labs: Accuchecks 08/28/18 08/28/18 08/28/18 12:20 07:55 04:33 POC Glucose 214 H 131 H 105 08/28/18 08/27/18 08/27/18 00:15 22:07 19:47 POC Glucose 199 H 185 H 403 H 08/27/18 16:29 POC Glucose 185 H Phys Exam - Physical Examination Constitutional: NAD Lying in bed with eyes closed. Required strong encouragement to sit up and talk with me. HEENT: PERRLA, oral pharynx no lesions Respiratory: no wheezing, no rales, no rhonchi, clear to auscultation bilateral Cardiovascular: RRR, no significant murmur Gastrointestinal: soft, non-tender, no distention Musculoskeletal: no edema Neurological: non-focal Psychiatric: A&O x 3 Deviation from normal: Appears annoyed. Dx/Plan (1) DKA (diabetic ketoacidoses) Code(s): E13.10 - OTH DIABETES MELLITUS WITH KETOACIDOSIS WITHOUT COMA Status : Acute Comment: Indicates he was using his insulin. Says he only missed one dose. Etiology unclear. Patient says he was sleeping in his truck, so it is not clear how well he was managing his DM. (2) Diabetes type I Status: Acute Comment: Numbers are good on his usual prescribed dose of insulin. (3) Abnormal blood electrolyte level Code(s): E87.8 - OTH DISORDERS OF ELECTROLYTE AND FLUID BALANCE, NEC Status: Resolved (4) Epigastric abdominal pain Code(s): R10.13 - EPIGASTRIC PAIN Status: Resolved (5) URI (upper respiratory infection) Code(s): J06.9 - ACUTE UPPER RESPIRATORY INFECTION, UNSPECIFIED Status: Acute Comment: Looks viral. Provided symptomatic therapies and decongestants, antihistamine, mucolytic. Stopping the decongestant due to the elevated blood pressure and concerns for impact on blood sugars. (6) Homeless Code(s): Z59.0 - HOMELESSNESS Status: Acute Comment: The patient might be able to discharge today, but he indicates he was sleeping in his truck and it has now been towed. He says his mother is and his father is an alcoholic. His insulin is at his father's house and he cannot reach him. Will keep him here for now and get case management consult. - Plan cont current plan of care, social work job titles, DVT proph w/lovenox * .
[2018-08-29 08:22] LABS: Anion Gap 15 mmol/L (10-20); BUN (Urea Nitrogen) 21 mg/dL (8.9-20.6); Calc. Creatinine Clearance 122 mL/min (70-130); Calcium 8.7 mg/dL (7.8-10.44); Carbon Dioxide 22 mmol/L (22-29); Chloride 102 mmol/L (98-107); Estimated GFR-MDRD Greater than 90; Glucose 248 mg/dL (70-105); Sodium 135 mmol/L (136-145)
[2018-08-29] MEDS: Insulin NPH/Reg Insulin Hm 300 UNITS/3 ML VIAL SC SCH (08:53)
[2018-08-29] MEDS: Enoxaparin Sodium 40 MG/0.4 ML SYRINGE SC SCH (08:56)
[2018-08-29] MEDS: Loratadine 10 MG TAB PO SCH ×2 (08:57→11:44)
[2018-08-29 09:16] VITALS: BP 160/90; TEMP 98
[2018-08-29] MEDS: Oxymetazoline HCl 0.05% ( 15 ML ) NASAL PRN (11:40)
[2018-08-29] MEDS: HumaLOG 300 UNITS/3 ML VIAL SC PRN (11:41)
== END 2018-08-29 16:50 | disposition home or self-care (01) | DRG 638 ==
LOC: ERS 07:48 → IMCU/EMU 08:55 → ONC 08-27 10:39
PROVIDERS: ADMIT Internal Medicine; ATTEND Internal Medicine
DX: E10.10 Type 1 diabetes mellitus with ketoacidosis without coma (principal); E87.1 Hypo-osmolality and hyponatremia; J06.9 Acute upper respiratory infection, unspecified; N28.9 Disorder of kidney and ureter, unspecified; R10.13 Epigastric pain; Z59.0 Homelessness; Z79.4 Long term (current) use of insulin
CPT/HCPCS: 36415; 36416; 80048; 80053; 82010; 82150; 82330; 82803; 83690; 85025; 94760; 96361; 96374; 96375; C9113; J1650; J1815; J2060; J2405; J7050

== ENCOUNTER 2018-09-22 03:49 | Inpatient (IN) | payer SELFPAY ==
[2018-09-22 04:21] LABS: #Basophils 0.1 thou/uL (0.0-0.2); #Lymphocytes 1.8 thou/uL (1.20-3.40); #Monocytes 0.6 thou/uL (0.11-0.59); #Neutrophils 8.2 thou/uL (1.40-6.50); %Basophils 0.9 % (0.0-1.0); %Eosinophils 0.4 % (0.0-10.0); %Lymphocytes 16.7 % (21.0-51.0); Hemoglobin 16.3 g/dL (14.0-18.0); Mean Corpuscular HGB CONC 34.2 g/dL (32.0-36.0); Mean Corpuscular Hemoglobin 32.3 pg (27.0-31.0); Mean Corpuscular Volume 94.3 fL (78.0-98.0); Mean Platelet Volume 7.2 fL (7.4-10.4); Platelet Count 414 thou/uL (130-400); RBC Distribution Width 11.6 % (11.5-14.5); Red Blood Cell (RBC) Count 5.05 mill/uL (4.70-6.10); White Blood Cell (WBC) Count 10.7 thou/uL (4.8-10.8)
[2018-09-22 04:42] LABS: ALT (SGPT) 25 U/L (8-55); AST (SGOT) 13 U/L (5-34); Albumin 3.7 g/dL (3.5-5.0); Alcohol Less than 10 mg/dL (Less than 10); Alkaline Phosphatase 162 U/L (40-150); Anion Gap 21 mmol/L (10-20); BUN (Urea Nitrogen) 24 mg/dL (8.9-20.6); Bilirubin, Total Less than 0.2 mg/dL (0.2-1.2); Calc. Creatinine Clearance 0 mL/min (70-130); Calcium 8.7 mg/dL (7.8-10.44); Carbon Dioxide 14 mmol/L (22-29); Chloride 99 mmol/L (98-107); Estimated GFR-MDRD 54; Glucose 313 mg/dL (70-105); Lipase 34 U/L (8-78); Magnesium 1.8 mg/dL (1.6-2.6); Potassium 4.3 mmol/L (3.5-5.1); Protein, Total 6.7 g/dL (6.0-8.3); Sodium 130 mmol/L (136-145)
[2018-09-22 05:41] LABS: Base Excess-Venous -8.6 mmol/L (0 (+/- 2.5)); Bicarbonate (HCO3v) 16.1 mmol/L (22.0-29.0); CO2 Tension (PvCO2) 31.3 mmHg (41.0-51.0); Hemoglobin - Calc 15.9 g/dL (12.0-18.0); O2 Tension (PvO2) 64.8 mmHg (35.0-45.0); Potassium 3.8 mmol/L (3.4-4.7); T. Carbon Dioxide 17.1 mmol/L (1.0-85.0); pH (Venous) 7.321 (7.35-7.45)
[2018-09-22] MEDS ORDERED: Insulin Regular 300 UNITS/3 ML VIAL ONE (05:53)
[2018-09-22 06:34] LABS: Acetaminophen Less than 6.0 mcg/mL (10.0-30.0); Alcohol Less than 10 mg/dL (Less than 10); Salicylate Less than 8.0 mg/dL (15.0-30.0)
[2018-09-22] MEDS ORDERED: Dextrose 50% Abboject 50 ML SYRINGE SLOW IVP PRN ×2 (06:59→11:47)
[2018-09-22] MEDS ORDERED: Dextrose 5% in Water 1,000 ML IV PRN ×2 (06:59→11:47)
[2018-09-22] MEDS ORDERED: Acetaminophen 325 MG TAB PO PRN ×2 (06:59→11:47)
[2018-09-22] MEDS ORDERED: Sodium Chloride 0.9% 1,000 ML IV SCH (07:00)
[2018-09-22 08:11] LABS: Anion Gap 14 mmol/L (10-20); BUN (Urea Nitrogen) 20 mg/dL (8.9-20.6); Calc. Creatinine Clearance 0 mL/min (70-130); Calcium 7.9 mg/dL (7.8-10.44); Carbon Dioxide 18 mmol/L (22-29); Chloride 105 mmol/L (98-107); Estimated GFR-MDRD 79; Glucose 83 mg/dL (70-105); Potassium 3.7 mmol/L (3.5-5.1); Sodium 133 mmol/L (136-145)
--- NOTE | 2018-09-22 08:24 | RAD ---
PORTABLE UPRIGHT FRONTAL CHEST RADIOGRAPH: DATE: 09/22/2018. COMPARISON: None. HISTORY: Vision loss. FINDINGS: Lungs are clear. Heart and mediastinal contours unremarkable. IMPRESSION: No acute findings. POS: [facility]
--- NOTE | 2018-09-22 09:27 | CT ---
PRELIMINARY REPORT/[facility]/EMERGENTY AFTER-HOURS PROCEDURE CT Head Without Contrast EXAM DATE/TIME: 09/22/2018 4:12 AM CLINICAL HISTORY: 38 years old, male; Pain; Headache; Patient HX: M38 reports to ed via ems C/O vision loss. Ems report s patients dstick 400, lethargic and possible ETOH. Ems reports patients dad administered insulin [place] of how much at 0000. Ems reports patient stated he lost his vision at midnight tonight and only sees white when he opens his eyes. Patient reports "he feels bad. " however patient denies a ny pain at this time TECHNIQUE: Axial computed tomography images of the head/brain without contrast. COMPARISON: No relevant prior studies available. FINDINGS: Brain: No acute intracranial hemorrhage or mass effect. No definite acute infarct by CT. MRI could be more sensitive/specific for detection, as clinically di rected. Ventricles: Ventricle size is normal for age. Bones/joints: No definite acute skull fracture. Sinuses: Included paranasal sinuses are essentially clear. Mastoid air cells: No significant acute finding. Soft tissues: Normal. IMPRESSION: 1. No acute intracranial bleed or mass effect. 2. No definite acute infarct by CT, see above. Thank you for allowing us to participate in the care of your patient. Dictated and Authenticated by: Abraham Fiore MD 09/22/2018 4:41 AM Central Time ([place] & [place]) FINAL REPORT CT HEAD NONCONTRAST: DATE: 09/22/2018. TIME: Performed on an emergency basis at 0413 hours. HISTORY: Altered mental status. FINDINGS: No comparison. Agree with the preliminary report by Dr. Fiore from [facility]. No acute intr acranial abnormalities are demonstrated. POS: [facility]
[2018-09-22 11:18] VITALS: BMI 22.6
[2018-09-22] MEDS ORDERED: Acetaminophen 650 MG Suppository PR PRN (11:47)
[2018-09-22] MEDS ORDERED: Ondansetron ODT 4 MG TAB PO PRN (11:47)
[2018-09-22] MEDS ORDERED: Ondansetron PF 4 MG/2 ML Vial IVP PRN (11:47)
[2018-09-22] MEDS ORDERED: HumaLOG 300 UNITS/3 ML VIAL SC PRN (11:47)
[2018-09-22] MEDS: Sodium Chloride 0.9% 1,000 ML IV SCH ×2 (12:39→21:26)
[2018-09-22] MEDS: HumaLOG 300 UNITS/3 ML VIAL SC PRN (21:29)
[2018-09-22] MEDS: Famotidine 20 MG TAB PO SCH (21:29)
[2018-09-23] MEDS: HumaLOG 300 UNITS/3 ML VIAL SC PRN ×2 (00:22→12:29)
[2018-09-23 05:35] LABS: #Basophils 0.1 thou/uL (0.0-0.2); #Eosinphils 0.1 thou/uL (0.0-0.7); #Lymphocytes 2.2 thou/uL (1.20-3.40); #Monocytes 0.6 thou/uL (0.11-0.59); #Neutrophils 3.8 thou/uL (1.40-6.50); %Basophils 1.1 % (0.0-1.0); %Eosinophils 2.1 % (0.0-10.0); %Lymphocytes 32.2 % (21.0-51.0); %Neutrophils 55.5 % (42.0-75.0); Hemoglobin 12.4 g/dL (14.0-18.0); Mean Corpuscular HGB CONC 35.3 g/dL (32.0-36.0); Mean Corpuscular Hemoglobin 33.1 pg (27.0-31.0); Mean Corpuscular Volume 93.8 fL (78.0-98.0); Mean Platelet Volume 7.2 fL (7.4-10.4); Platelet Count 276 thou/uL (130-400); RBC Distribution Width 11.4 % (11.5-14.5); Red Blood Cell (RBC) Count 3.75 mill/uL (4.70-6.10); White Blood Cell (WBC) Count 6.9 thou/uL (4.8-10.8)
[2018-09-23 05:40] LABS: Anion Gap 10 mmol/L (10-20); BUN (Urea Nitrogen) 16 mg/dL (8.9-20.6); Calc. Creatinine Clearance 92 mL/min (70-130); Calcium 7.9 mg/dL (7.8-10.44); Carbon Dioxide 24 mmol/L (22-29); Chloride 105 mmol/L (98-107); Estimated GFR-MDRD 80; Glucose 335 mg/dL (70-105); Potassium 3.6 mmol/L (3.5-5.1); Sodium 135 mmol/L (136-145)
[2018-09-23] MEDS: Famotidine 20 MG TAB PO SCH (07:41)
[2018-09-23] MEDS: Sodium Chloride 0.9% 1,000 ML IV SCH (07:49)
[2018-09-23] MEDS ORDERED: Insulin NPH/Reg Insulin Hm 300 UNITS/3 ML VIAL SC SCH ×2 (08:45→21:00)
[2018-09-23 12:15] VITALS: BP 164/113; TEMP 97.7
--- NOTE | 2018-09-23 15:38 | HP ---
PRIMARY CARE PHYSICIAN: None. CHIEF COMPLAINT: Decreased vision. HISTORY OF PRESENT ILLNESS: Mr. Rivera is a 38-year-old gentleman, recently admitted here for uncontrolled diabetes, who became lethargic and checked his blood sugar, found to be in the 400s. He felt very bad. He also complains that he had decreased vision to both of his eyes. He describes almost a whiteout occurring around midnight. Workup in the emergency department showed a mild anion gap metabolic acidosis and beta hydroxybutyrate of 6.0. He was initially started on insulin drip. We were called for admission. The patient is seen on arrival to the floor. He is sleeping and difficult to arouse, but is not in any distress. He had no other current complaints. PAST MEDICAL HISTORY: 1. Diabetes mellitus type 1. 2. Medical nonadherence. PAST SURGICAL HISTORY: Includes pelvic fracture with hardware repair and right lower extremity fracture. HOME MEDICATIONS: 1. Insulin 70/30, 25 units subcu b.i.d. 2. Regular insulin sliding scale. ALLERGIES: NKDA. FAMILY HISTORY: Negative for clotting or bleeding disorder, no immune dysfunction. SOCIAL HISTORY: Negative habits x3. REVIEW OF SYSTEMS: All systems reviewed. The patient was too sleepy to wake up and answer any questions, so review of systems is unobtainable. PHYSICAL EXAMINATION: VITAL SIGNS: Temperature on arrival was 97.4, pulse 89, blood pressure 138/84, respiratory rate 15, and saturating 96% on room air. GENERAL: He is sleeping, but arousable. He is a well-developed, well-nourished, white male, appears to be in no distress. HEENT: Normocephalic and atraumatic. Pupils are equal, round, reactive to light bilaterally. Mucous membranes are moist. There are no visible lesions or thrush. NECK: Supple. No lymphadenopathy, JVD, or thyromegaly. Normal carotid upstroke. No bruits. LUNGS: Clear. No wheezes. No rales. No rhonchi. Good air movement. Symmetric chest excursion. CARDIOVASCULAR: Normal S1 and S2. No S3 or S4. No audible murmurs. ABDOMEN: Soft, nontender, and nondistended. No mass or hepatosplenomegaly. EXTREMITIES: No cyanosis, clubbing, or edema. SKIN: Warm, moist, well perfused. He has no rashes or lesions. NEUROLOGIC: Cranial nerves 2 through 12 grossly intact. He has no focal neurologic deficits and normal carotid upstrokes. He has 5/5 strength and normal speech. LABORATORY DATA: Sodium 133, potassium 3.7, chloride 108, bicarbonate 18, BUN 20, creatinine 1.05 with anion gap of 14. PH was 7.32 with pCO2 of 31, and pO2 of 64. Beta hydroxybutyrate was 6.13. CBC showed white count normal at 10.7, hemoglobin 16.3, hematocrit 47.6, and platelet count is 414,000. ASSESSMENT AND PLAN: 1. Mild diabetic ketoacidosis. 2. Medical nonadherence. 3. Moderate dehydration. 4. Diabetes mellitus type 1, uncontrolled. 5. The patient is placed in inpatient status. He is currently awake and eating. He is off the insulin drip. We will start him on his 70/30 twice a day with sliding scale regular insulin, and we will follow his sugars closely. Repeat labs in the morning. Job ID: [id number]
--- NOTE | 2018-09-23 15:44 | DIS ---
DATE OF ADMISSION: 09/22/2018 DATE OF DISCHARGE: 09/23/2018 PRIMARY CARE PHYSICIAN: None. DISCHARGE DIAGNOSES: 1. Visual change, acute, resolved. 2. Mild diabetic ketoacidosis. 3. Medical nonadherence with diabetes mellitus type 1. CONSULTATION: None. PROCEDURES: None. HISTORY AND PHYSICAL: Mr. Rivera is a 38-year-old gentleman with known type 1 diabetes and medical nonadherence, who presents to the emergency department for evaluation of visual changes. He had some almost whiteout of his visual field of both of his eyes and so called EMS. He was subsequently brought to the emergency department for evaluation. In the ER, he was found to have an elevated blood sugar, elevated beta-hydroxybutyrate, and anion gap that was apparently normal at 14. HOSPITAL COURSE: The patient was seen and examined by me on arrival to the floor. He was started on his home insulin with 70/30 of 25 units subcu b.i.d., and regular insulin sliding scale. Overnight, he did not getting his evening dose of 70/30, so his sugars did get up to 400 to 500 range. By the next morning, they were fairly normal. He did get his morning dose of 70/30. He was able to eat and keep food down. Anion gap remained closed. He was stable for discharge with outpatient followup. PHYSICAL EXAMINATION: The patient was seen and examined on the day of discharge. Discharge plan and disposition were discussed with the patient [id number] at bedside. DISCHARGE MEDICATIONS: 1. Insulin 70/30 of 25 units subcu b.i.d. 2. Regular insulin sliding scale per home dosing. DISCHARGE CONDITION: Stable. DISPOSITION: Discharged home via private vehicle. FOLLOWUP APPOINTMENTS: Primary care physician in a week. DISCHARGE ACTIVITY: As tolerated. DISCHARGE DIET: Diabetic diet recommended. Job ID: [id number]
== END 2018-09-23 15:57 | disposition home or self-care (01) | DRG 639 ==
LOC: ERS 03:49 → ERHOLD 05:59 → INTOOBSV 05:59 → OBSVTOIN 05:59 → 2NO 08:31 → T4-A 19:51
PROVIDERS: ADMIT Internal Medicine; ATTEND Internal Medicine
DX: E10.10 Type 1 diabetes mellitus with ketoacidosis without coma (principal); Z79.4 Long term (current) use of insulin; Z91.19 Patient's noncompliance with other medical treatment and regimen
CPT/HCPCS: 36415; 36416; 70450; 71045; 80048; 80053; 80307; 82010; 82330; 82803; 83690; 83735; 84484; 85025; 96361; 96374; J1815; J7050